=== PATIENT | male | born 1955 | race Caucasian/White ===

== ENCOUNTER 2018-07-03 03:05 | Emergency (ER) | payer OTHER, MEDICAID, MEDICARE ==
[2018-07-03] MEDS ORDERED: LIDOCAINE 1% (MDV) 10 ML INJ INJ (03:47)
[2018-07-03] MEDS: DIPHTH/TET/ACEL PERTUSS (ADULT) 0.5 ML VIAL IM* (04:44)
[2018-07-03] MEDS: LIDOCAINE 1%/EPI (MDV) 50 ML INJ INJ (05:09)
== END 2018-07-03 06:24 | disposition home or self-care (01) ==
LOC: E/R 03:05
DX: S01.01XA Laceration without foreign body of scalp, initial encounter (principal); S01.81XA Laceration without foreign body of other part of head, initial encounter; S51.811A Laceration without foreign body of right forearm, initial encounter; S02.2XXA Fracture of nasal bones, initial encounter for closed fracture; I10 Essential (primary) hypertension; Y04.8XXA Assault by other bodily force, initial encounter; Z23 Encounter for immunization
CPT/HCPCS: 12005; 70450; 70486; 90471; 90715; 99285-25

== ENCOUNTER 2018-07-12 17:56 | Emergency (ER) | payer SELFPAY, MEDICARE | END 2018-07-12 18:15 | disposition left against medical advice (07) | LOC: E/R 17:56 | DX: Z53.21 Procedure and treatment not carried out due to patient leaving prior to being seen by health care provider (principal) ==

== ENCOUNTER 2018-08-12 09:14 | Emergency (ER) | payer MEDICARE, MEDICAID | END 2018-08-12 10:26 | disposition home or self-care (01) | LOC: FTE 09:14 | DX: Z48.02 Encounter for removal of sutures (principal); I10 Essential (primary) hypertension; Z21 Asymptomatic human immunodeficiency virus [HIV] infection status | CPT/HCPCS: 99281 ==